=== PATIENT | male | born 1990 | race Caucasian/White ===

== ENCOUNTER 2024-01-06 20:23 | Emergency (ER) | payer OTHER ==
[~2024-01-06] VITALS: Ht 177.8 cm; Wt 68.0 kg
[2024-01-06 20:25] VITALS: BP 171/84; PULSE 104; RESP 10; TEMP 97.6; O2SAT 98
[2024-01-06 22:33] VITALS: BP 151/85; PULSE 86; RESP 13; TEMP 97.6; O2SAT 99
== END 2024-01-06 22:36 ==
LOC: MED 20:23
DX: Z02.89 Encounter for other administrative examinations (principal); R11.0 Nausea; R03.0 Elevated blood-pressure reading, without diagnosis of hypertension; R00.0 Tachycardia, unspecified
CPT/HCPCS: 99284

== ENCOUNTER 2024-01-15 12:00 | Emergency (ER) | payer OTHER ==
[~2024-01-15] VITALS: Ht 180.3 cm; Wt 72.6 kg
[2024-01-15 12:09] VITALS: BP 122/70; PULSE 109; RESP 20; TEMP 97.3; O2SAT 96
[2024-01-15] MEDS ORDERED: cefTRIAXone 1,000 MG VIAL ONE (12:32)
[2024-01-15 12:45] VITALS: O2SAT 98
[2024-01-15] MEDS: NACL 0.9% 1,000 ML IV ONE (12:56)
[2024-01-15 13:06] LABS: BASOPHILS % (AUTO) 0.3 % (0.0-2.0); EOSINOPHILS % (AUTO) 0.6 % (0.0-4.0); HEMOGLOBIN 13.8 g/dL (12.0-18.0); LYMPHOCYTES # (AUTO) 1.3 K/uL (2.0-11.5); LYMPHOCYTES % (AUTO) 20.4 % (20.5-51.1); MEAN CORPUSCULAR HEMOGLOBIN 29 pg (27-31); MEAN CORPUSCULAR HGB CONC 34 g/dL (33-37); MONOCYTES # (AUTO) 0.6 K/uL (0.8-1.0); MONOCYTES % (AUTO) 10.2 % (1.7-9.3); NEUTROPHILS # (AUTO) 4.2 K/uL (1.8-7.7); NEUTROPHILS % (AUTO) 68.5 % (42.2-75.2); PLATELET COUNT (AUTO) 153 K/uL (140-450); RED BLOOD CELL COUNT(AUTO) 4.71 MIL/uL (4.20-6.10); RED CELL DISTRIBUTION WIDTH 13.7 % (11.6-13.7); WHITE BLOOD COUNT (AUTO) 6.2 K/uL (4.8-10.8)
[2024-01-15 13:27] LABS: ANION GAP 10.4 (8-16); CALCIUM 7.5 mg/dL (8.5-10.1); CREATININE 0.8 mg/dL (0.6-1.3); POTASSIUM 3.4 mmol/L (3.5-5.1)
[2024-01-15 13:31] LABS: ACETAMINOPHEN < 0.5 ug/ml (10-30); ALCOHOL, BLOOD < 3 mg/dL (<10); SALICYLATE < 2.8 mg/dL (2.8-20.0)
[2024-01-15 13:55] LABS: AMPHETAMINE, URINE POSITIVE ng/ml (NEG <=1000); BARBITURATE, URINE NEGATIVE ng/ml (NEG <=200); BENZODIAZEPINE, URINE NEGATIVE ng/mL (NEG <=200); CANNABINOID, URINE NEGATIVE ng/mL (NEG <=50); COCAINE, URINE NEGATIVE ng/mL (NEG <=300); OPIATE, URINE NEGATIVE ng/mL (NEG <=2000); PHENCYCLIDINE SCREEN,URINE NEGATIVE ng/mL (NEG <=25)
[2024-01-15 14:00] VITALS: BP 123/75; PULSE 82; RESP 20; TEMP 97.6; O2SAT 98
== END 2024-01-15 15:19 ==
LOC: MED 12:00
DX: T40.414A Poisoning by fentanyl or fentanyl analogs, undetermined, initial encounter (principal); F15.90 Other stimulant use, unspecified, uncomplicated; R00.0 Tachycardia, unspecified; L53.9 Erythematous condition, unspecified; R22.41 Localized swelling, mass and lump, right lower limb; Y92.89 Other specified places as the place of occurrence of the external cause
CPT/HCPCS: 36415; 80048; 80305; 85025; 93005; 96365; 99284; G0480; G0482; J0696